=== PATIENT | female | born 1950 | race Caucasian/White ===

== ENCOUNTER 2020-07-07 07:28 | Day surgery (SDC) | payer MEDICARE, BC ==
[2020-06-30 16:16] LABS: CLARITY,URINE CLEAR (Clear); COLOR,URINE YELLOW (Yellow); GLUCOSE, URINE NEGATIVE (Neg); KETONES,URINE NEGATIVE (Neg); LEUKOCYTE ESTERASE ,URINE NEGATIVE (Neg); NITRITES, URINE NEGATIVE (Neg); OCCULT BLOOD,URINE NEGATIVE (Neg); PH,URINE 5.5 (4.8-8.0); PROTEIN,URINE NEGATIVE (Neg); UROBILINOGEN,URINE 0.2 E.U/dL (0.2-1.0)
[2020-06-30 16:18] LABS: BASOPHILS % (AUTO) 0.7 % (0-1); EOSINOPHILS # (AUTO) 0.3 X10'3 (0-0.9); EOSINOPHILS % (AUTO) 4.4 % (0-6); LYMPHOCYTES # (AUTO) 1.7 X10'3 (1.1-4.8); LYMPHOCYTES % (AUTO) 23.2 % (21-51); MEAN CORPUSCULAR HEMOGLOBIN 32.1 PG (27.0-31.0); MEAN CORPUSCULAR HGB CONC 33.8 g/dL (33.0-36.5); MEAN PLATELET VOLUME 7.4 FL (7.4-10.4); MONOCYTES # (AUTO) 0.7 X10'3 (0-0.9); MONOCYTES % (AUTO) 10.4 % (2-12); NEUTROPHILS # (AUTO) 4.4 X10'3 (1.8-7.7); NEUTROPHILS % (AUTO) 61.3 % (42-75); PRE OP HEMATOCRIT 43.9 % (35.0-45.0); PRE OP HEMOGLOBIN 14.9 g/dL (12.0-16.0); PRE OP PLATELET COUNT 320 X10'3 (140-440); RED BLOOD COUNT 4.62 X10'6 (4.20-5.60); RED CELL DISTRIBUTION WIDTH 12.4 % (11.5-14.5)
[2020-06-30 16:20] LABS: UA COLLECTION TYPE CLN CATCH MIDSTREAM
[2020-06-30 16:30] LABS: ALBUMIN 4.2 G/DL (3.4-5.0); ALBUMIN/GLOBULIN RATIO 1.1 (1.1-1.5); ALKALINE PHOSPHATASE 75 IU/L (46-116); BLOOD UREA NITROGEN 20 MG/DL (7-18); BUN/CREATININE RATIO 23.8 (6.6-38.0); CALCIUM 9.1 MG/DL (8.5-10.1); CHLORIDE 105 MMOL/L (99-107); CREATININE 0.84 MG/DL (0.40-0.90); PRE OP ALT 54 U/L (30-65); PRE OP ANION GAP 11 (8-16); PRE OP AST 27 U/L (10-37); PRE OP BILIRUB, TOTAL 0.2 MG/DL (0.0-1.0); PRE OP GLUCOSE 100 MG/DL (70-104); PRE OP POTASSIUM 4.2 MMOL/L (3.4-5.1); PRE OP SODIUM 141 MMOL/L (135-145); TOTAL CARBON DIOXIDE 25.2 MMOL/L (24-32); eGFR 68 ML/MIN
[2020-07-07] VITALS (12 sets, daily range): BP systolic 121–163; BP diastolic 71–88
[~2020-07-07] VITALS: Ht 170.2 cm; Wt 98.2 kg
[~2020-07-07 07:28] MED LIST: ASPI-611 PO; CALC-1051 PO; ERGO400C PO; LACT1CAP75 PO; OMEG1CAP2 PO; PRAV20TA4 PO; RAMI10CA69 PO; TIOT4MIS3 INH; [UNRECOGNIZED DRUG - OTHER] PO; ceFAZolin 2gm in dextrose, iso 50 ML IV ONE; famotidine 20mg tablet PO ONE; ringers solution, lacted 1,000 ML IV SCH
[2020-07-07] MEDS ORDERED: BUPIVAcaine/PF 2.5mg/ml (0.25%) 10ml vial ONE ×3 (09:30→09:36)
[2020-07-07] MEDS ORDERED: scopolamine 1.5mg patch.TD72 TD ONE (09:35)
[2020-07-07] MEDS ORDERED: BUPIVACAINE liposomal/PF 13.3 MG/ML vial IM ONE ×2 (09:36)
[2020-07-07] MEDS ORDERED: morphine 4 MG/ML inj SYRINge IV PRN (09:45)
[2020-07-07] MEDS ORDERED: ondansetron/PF 4mg/2ml inj IV PRN (09:45)
[2020-07-07] MEDS ORDERED: proCHLORperazine 10 MG/2 ml inj IV PRN (09:45)
[2020-07-07] MEDS ORDERED: hydrALAZINE 20mg/ml inj. IV PRN (09:45)
[2020-07-07] MEDS ORDERED: morphine 2 MG/ML inj. syringe IV PRN (09:45)
[2020-07-07] MEDS ORDERED: labetalol 20mg/4ml (5mg/ml) syringe IV PRN (09:45)
[2020-07-07] MEDS ORDERED: proMETHazine 25mg rectal suppository RC PRN (09:45)
[2020-07-07] MEDS ORDERED: ringers solution, lacted 1,000 ML IV SCH (09:45)
[2020-07-07] MEDS ORDERED: fentaNYL/PF 50MCG/1 ML 2ML syringe IV PRN ×2 (09:45)
[2020-07-07] MEDS ORDERED: fentaNYL/PF 50MCG/1 ML 2ML syringe ONE (09:48)
[2020-07-07] MEDS ORDERED: dexmedetomidin/NS 400mcg/100mL bag IV ONE (09:48)
[2020-07-07] MEDS ORDERED: midazolam 2 mg/2 ml injection ONE (09:48)
[2020-07-07] MEDS ORDERED: sevoflurane 250ml liquid IH ONE (09:48)
[2020-07-07] MEDS ORDERED: neostigmine methylsulfate 1 MG/ML 10ml vial ONE (09:48)
[2020-07-07] MEDS ORDERED: ondansetron/PF 4mg/2ml inj ONE (09:50)
[2020-07-07] MEDS ORDERED: LIDOcaine 2% (20mg/ml) 5ml vial ONE (09:50)
[2020-07-07] MEDS ORDERED: rocuronium 10mg/ml inj IV ONE (09:50)
[2020-07-07] MEDS ORDERED: dexamethasone sod phosphate 4mg/ml inj. ONE (09:50)
[2020-07-07] MEDS ORDERED: propofol inj 20 ML IV ONE (09:50)
[2020-07-07] MEDS ORDERED: glycopyrrolate 0.2mg/ml inj ONE (09:50)
[2020-07-07] MEDS ORDERED: acetaminophen 1,000mg/100ml IV 100 ML IV ONE (10:02)
[2020-07-07] MEDS ORDERED: hydrALAZINE 20mg/ml inj. IV ONE (10:30)
--- NOTE | 2020-07-07 11:40 | NUR ---
Received from OR via BED , accompanied by Anesthesiologist DR AGUILAR and report given by Anesthesiolgist. PATIENT WAKING UP, DENIES PAIN, V/S WNL, NEUROVASCULAR CHECKS INTACT, 20G PIV RUE, SCD ON, BANDAIDS TO LAP SIGHTS OF ABDOMEN CDI.
[2020-07-07] MEDS ORDERED: HYDROcodone/acetaminophen 10/325mg tab PO ONE (11:55)
--- NOTE | 2020-07-07 13:20 | NUR ---
PATIENT A&OX4, DENIES PAIN, V/S WNL, NEUROVASCULAR CHECKS INTACT, 20G PIV LUE D/C, SCD OFF, BANDAIDS TO LAP SIGHTS OF ABDOMEN CDI.. 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
== END 2020-07-07 13:20 | disposition home or self-care (01) ==
LOC: PAS 07:28
PROVIDERS: ATTEND Surgery
DX: K42.0 Umbilical hernia with obstruction, without gangrene (principal); I10 Essential (primary) hypertension; E78.5 Hyperlipidemia, unspecified; J45.909 Unspecified asthma, uncomplicated; E66.01 Morbid (severe) obesity due to excess calories; Z68.33 Body mass index [BMI] 33.0-33.9, adult; Z90.710 Acquired absence of both cervix and uterus; Z79.899 Other long term (current) drug therapy; Z98.890 Other specified postprocedural states; Z88.5 Allergy status to narcotic agent; Z20.822 Contact with and (suspected) exposure to COVID-19; Z85.42 Personal history of malignant neoplasm of other parts of uterus; Z82.3 Family history of stroke; Z82.49 Family history of ischemic heart disease and other diseases of the circulatory system; Z83.6 Family history of other diseases of the respiratory system
CPT/HCPCS: 36415; 49653; 64488; 80053; 81003; 82948; 85025; 87635; 93005; C1758; C1781; C9290; J0131; J0360; J1100; J2001; J2250; J2405; J2704; J2710; J3010; J3490; J7120; A4215; A4618